=== PATIENT | female | born 1965 ===

== ENCOUNTER 2016-12-26 11:32 | Emergency (ER) | payer SELFPAY ==
[2016-12-26 11:43] VITALS: BP 123/79; BMI 24.9
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
== END 2016-12-26 13:25 | disposition home or self-care (01) ==
LOC: ER 11:47
DX: S30.1XXA Contusion of abdominal wall, initial encounter (principal); S20.211A Contusion of right front wall of thorax, initial encounter; S73.101A Unspecified sprain of right hip, initial encounter; G44.319 Acute post-traumatic headache, not intractable; R42 Dizziness and giddiness; V87.7XXA Person injured in collision between other specified motor vehicles (traffic), initial encounter
CPT/HCPCS: 70450; 74176; 99283